=== PATIENT | male | born 1990 | race Caucasian/White ===

== ENCOUNTER 2016-10-21 05:22 | Emergency (ER) | payer SELFPAY ==
[~2016-10-21] VITALS: Ht 167.6 cm; Wt 75.0 kg
[~2016-10-21 05:22] MED LIST: IBUP-232 PO; TRAM50 PO
[2016-10-21 05:24] VITALS: BP 156/97; PULSE 120; RESP 18; TEMP 98; O2SAT 100
[2016-10-21] MEDS ORDERED: DOXYCYCLINE HYCLATE 100 MG TAB PO ONE (06:15)
[2016-10-21] MEDS ORDERED: ACYC400T PO (06:19)
--- NOTE | 2016-10-21 06:24 | PD ---
HPI Chief Complaint: Complaint Time Seen by Provider: 06:13 Travel History International Travel<30 days: No Contact w/Intl Traveler<30days: No Traveled to known affect area: No History of Present Illness HPI 25-year-old male presents to the emergency department for one day of blister- patient is sexually active with and without condom use. Patient does not know if he's had contact with partner that has gentle herpes. Rash is painful on the shaft of the penis. No prior history of genital herpes. No penile discharge. Patient has noted some mild dysuria. No testicular pain. Patient didn't love one episode of vomiting earlier in the evening. No diarrhea. No fever or chills. No abdominal pain. Patient rates penile pain 5/10 in intensity. PFSH Past Medical History Narrative Medical Multiple rib fractures, splenectomy, femur fracture with larisa, appendectomy; tobacco use marijuana use; nursing notes reviewed Hx Anticoagulant Therapy: No Cardiovascular Problems: No Chemotherapy: No Cerebrovascular Accident: No Diabetes: No Diminished Hearing: No Respiratory: No Past Surgical History Appendectomy: Yes Hysterectomy: No Other Surgery: Yes (splenectomy) Social History Alcohol Use: Yes Tobacco Use: Yes (1/2ppd) Substance Use: Yes (marijuana) Allergies-Medications (Allergen,Severity, Reaction): Coded Allergies: Ceclor (Verified Adverse Reaction, Severe, HIVES, 10/21/16) Reported Meds & Prescriptions Reported Meds & Active Scripts Active Acyclovir 400 Mg Tab 400 Mg PO TID 10 Days Review of Systems Except as stated in HPI: all other systems reviewed are Neg General / Constitutional: No: Fever, Chills HENT: No: Congestion Cardiovascular: No: Chest Pain or Discomfort Respiratory: No: Shortness of Breath Gastrointestinal: Positive: Vomiting (x1), No: Diarrhea, Abdominal Pain Genitourinary: Positive: Dysuria, No: Discharge Musculoskeletal: No: Myalgias, Arthralgias Skin: Positive Rash Neurologic: No: Weakness Psychiatric: No: Anxiety Hematologic/Lymphatic: No: Lymph Node Enlargement Physical Exam Narrative GENERAL: Well-developed, nourished male in no acute distress no respiratory distress SKIN: Warm and dry. HEAD: Normocephalic. EYES: No scleral icterus. No injection or drainage. NECK: Supple, trachea midline. No JVD or lymphadenopathy. CARDIOVASCULAR: Regular rate and rhythm without murmurs, gallops, or rubs. RESPIRATORY: Breath sounds equal bilaterally. No accessory muscle use. GASTROINTESTINAL: Abdomen soft, non-tender, nondistended. : Circumcised male bilaterally descended testicles cluster of vesicles with erythematous base tender to palpation on the distal portion of the penile shaft. No ulcerations. MUSCULOSKELETAL: No cyanosis, or edema. BACK: Nontender without obvious deformity. No CVA tenderness. Data Data Last Documented VS Vital Signs Date Time Temp Pulse Resp B/P Pulse Ox O2 Delivery O2 Flow Rate FiO2 10/21/16 05:38 89 15 10/21/16 05:24 98.0 156/97 100 Orders Gc And Chlamydia Pcr (10/21/16 06:07) Ua Includes Microscopic (10/21/16 06:07) Herpes Simplex Virus Culture (10/21/16 06:07) Doxycycline (Vibratab) (10/21/16 06:15) Azithromycin (Zithromax) (10/21/16 09:00) Acyclovir (Zovirax) (10/21/16 06:30) Azithromycin (Zithromax) (10/21/16 06:30) Labs Laboratory Tests Test 10/21/16 06:20 Urine Color YELLOW Urine Turbidity CLEAR Urine pH 6.0 Urine Specific [place] 1.024 Urine Protein NEG mg/dL Urine Glucose (UA) NEG mg/dL Urine Ketones NEG mg/dL Urine Occult Blood NEG Urine Nitrite NEG Urine Bilirubin NEG Urine Urobilinogen 2.0 MG/DL Urine Leukocyte Esterase SMALL Urine RBC 2 /hpf Urine WBC 24 /hpf Urine Bacteria RARE /hpf Urine Mucus FEW /lpf MDM Medical Decision Making Medical Screen Exam Complete: Yes Emergency Medical Condition: Yes Medical Record Reviewed: Yes Interpretation(s) UA: White blood cells bacteria culture indicated Differential Diagnosis Genital herpes, contact dermatitis, STI, UTI Narrative Course 35 year-old male with clustered vesicles on the shaft of the penis that are painful noted times one day who is sexually active without condom use.; Viral swab obtained and presumptive treatment for STI along with genital herpes administered as well as for STI exposure with doxycycline and azithromycin in the emergency department prior to discharge. Patient is otherwise stable for outpatient management. Diagnosis Primary Impression: Vesicular rash Additional Impressions: Genital herpes Qualified Code: A60.01 - Herpes simplex infection of penis Urethritis Referrals: [facility] call for appointment Patient Instructions: General Instructions Additional Instructions: Increase fluid hydration Remain sexually inactive 7 days and only with condoms thereafter Follow-up with primary care provider or [facility] Take medication as prescribed Return to the emergency department for any concerns or change in condition Med/Other Pt SpecificInfo: Prescription(s) given Scripts Ciprofloxacin (Cipro)500 Mg [id number] Mg PO BID 7 Days Ref 0 Prov:Radha Hernandes MD 10/21/16 Acyclovir 400 Mg [id number] Mg PO TID 10 Days Ref 0 Prov:Radha Hernandes MD 10/21/16 Disposition: 01 DISCHARGE HOME Condition: Stable Radha Hernandes MD Oct 21, 2016 06:24
[2016-10-21] MEDS ORDERED: ACYCLOVIR 200 MG CAP PO ONE (06:30)
[2016-10-21] MEDS ORDERED: AZITHROMYCIN 250 MG TAB PO ONE (06:30)
[2016-10-21 06:38] LABS: BACTERIA, URINE RARE /hpf; BLOOD, URINE NEG (NEG); GLUCOSE,URINE NEG (NEG); KETONE, URINE NEG (NEG); MUCUS URINE FEW /lpf (OCC); NITRITE,URINE NEG (NEG); URINE COLOR YELLOW (YELLW/STRAW)
[2016-10-21] MEDS ORDERED: CIPR-9 PO (06:59)
[2016-10-21] MEDS ORDERED: AZITHROMYCIN 250 MG TAB PO SCH (09:00)
[2016-10-21 09:32] LABS: CHLAMYDIA PCR DETECTED (NOT DETECT); NEISSERIA PCR NOT DETECTED (NOT DETECT)
== END 2016-10-21 07:20 | disposition home or self-care (01) ==
LOC: NEPC 05:22
DX: R23.8 Other skin changes (principal); A60.01 Herpesviral infection of penis; A60.00 Herpesviral infection of urogenital system, unspecified; N34.2 Other urethritis
CPT/HCPCS: 81001; 87255; 87491; 87591; 99283

== ENCOUNTER 2016-11-28 22:01 | Emergency (ER) | payer SELFPAY ==
[~2016-11-28 22:01] MED LIST changes: +ACYC400T PO; +CIPR-9 PO; -IBUP-232 PO; -TRAM50 PO
[2016-11-28 22:04] VITALS: BP 164/97; PULSE 108; RESP 16; TEMP 99.3; O2SAT 98
--- NOTE | 2016-11-28 22:27 | PD ---
Physical Exam Time Seen by Provider: 22:25 Narrative 25yo M c/o stepping on metal diallo on Saturday. Noticed redness spreading from the puncture site today. Thinks he had tetanus when splenectomy done in 2011. Denies fever, vomiting. Patient seen in triage. VS reviewed. Awaiting bed placement. Data Data Last Documented VS Vital Signs Date Time Temp Pulse Resp B/P Pulse Ox O2 Delivery O2 Flow Rate FiO2 11/28/16 22:04 99.3 108 16 164/97 98 Room Air [facility] Supervised Visit with ROSALIO: Yumiko Dewitt Nov 28, 2016 22:27
[2016-11-28] MEDS ORDERED: CLIN1CAP5 PO (22:59)
--- NOTE | 2016-11-28 22:59 | PD ---
HPI Chief Complaint: Injury Time Seen by Provider: 22:30 Travel History International Travel<30 days: No Contact w/Intl Traveler<30days: No Traveled to known affect area: No History of Present Illness HPI 25 yo M c/o R foot pain along the sole of the foot. About three days prior he stepped on a piece of metal while he was in socks. He reports splenectomy about 5 years ago, which was also his last tetanus. Over the past two days pain in sole of right foot gradually increased associated redness also noted this afternoon. Erythema gradually worsened over course of day. Minimal tenderness present worse with palpation. No fever. He believe Neosporin may have been helpful. PFSH Past Medical History Hx Anticoagulant Therapy: No Cardiovascular Problems: No Chemotherapy: No Cerebrovascular Accident: No Diabetes: No Diminished Hearing: No Respiratory: No Past Surgical History Appendectomy: Yes Hysterectomy: No Other Surgery: Yes (splenectomy) Social History Alcohol Use: Yes Tobacco Use: Yes (1/2ppd) Substance Use: Yes (marijuana) Allergies-Medications (Allergen,Severity, Reaction): Coded Allergies: Ceclor (Verified Adverse Reaction, Severe, HIVES, 11/28/16) Reported Meds & Prescriptions Reported Meds & Active Scripts Active Clindamycin (Clindamycin HCl) 150 Mg Cap 450 Mg PO Q8HR 10 Days Review of Systems General / Constitutional: No: Fever Skin: Positive Lesions Physical Exam Narrative GENERAL: 25 yo M, WNWD, NAD SKIN: Warm and dry. Erythema in a linear pattern along sole of R foot with approximately 1cm area dry skin with central opening. HEAD: Normocephalic. EYES: No scleral icterus. No injection or drainage. NECK: Supple, trachea midline. No JVD or lymphadenopathy. GASTROINTESTINAL: Abdomen soft, non-tender, nondistended. MUSCULOSKELETAL: No cyanosis, or edema. BACK: Nontender without obvious deformity. No CVA tenderness. Data Data Last Documented VS Vital Signs Date Time Temp Pulse Resp B/P Pulse Ox O2 Delivery O2 Flow Rate FiO2 11/28/16 22:04 99.3 108 16 164/97 98 Room Air VS reviewed Orders Clindamycin Inj (Cleocin Inj) (11/28/16 23:00) Tetanus/Diphtheria Tox Adult (Tetanus/Di (11/28/16 23:00) MDM Medical Decision Making Medical Screen Exam Complete: Yes Emergency Medical Condition: Yes Medical Record Reviewed: Yes Differential Diagnosis sepsis, cellulitis, lymphangitis Narrative Course Pt has cellulitis with minute element lymphangitis. Clindamycin prescribed with first dose given here. Strict return precautions discussed and patient verbalized understanding. At home management discussed. Pt verbalized understanding. Diagnosis Primary Impression: Cellulitis Qualified Code: L03.115 - Cellulitis of right lower extremity Referrals: Primary Care Physician 2 days Additional Instructions: You have a choice when it comes to health care, and we are glad that you chose [facility]. Hopefully, we have met your expectations on today's visit. You are welcome to return to [facility] at any time, as we are committed to meeting the health care needs of our community. Med/Other Pt SpecificInfo: Prescription(s) given Scripts Clindamycin 150 Mg [id number] Mg PO Q8HR 10 Days Ref 0 Prov:Charli Cool MD 11/28/16 Disposition: 01 DISCHARGE HOME Condition: Stable Charli Cool MD Nov 28, 2016 22:59
[2016-11-28] MEDS ORDERED: CLINDAMYCIN PHOS 900 MG/6 ML VIAL IM ONE (23:00)
[2016-11-28] MEDS ORDERED: TETANUS/DIPHTHERIA TOXOID ADULT 0.5 ML VIAL IM ONE (23:00)
== END 2016-11-29 00:56 | disposition home or self-care (01) ==
LOC: NEPD 22:01
DX: L03.115 Cellulitis of right lower limb (principal); Z23 Encounter for immunization; F17.210 Nicotine dependence, cigarettes, uncomplicated
CPT/HCPCS: 90471; 90714; 96372

== ENCOUNTER 2017-09-19 01:58 | Emergency (ER) | payer SELFPAY ==
[~2017-09-19] VITALS: Ht 170.2 cm; Wt 80.0 kg
[~2017-09-19 01:58] MED LIST changes: -ACYC400T PO; -CIPR-9 PO; +CLIN150C14 PO
[2017-09-19 02:01] VITALS: BP 141/85; PULSE 112; RESP 18; TEMP 99.1; O2SAT 99
== END 2017-09-19 03:12 | disposition left against medical advice (07) ==
LOC: NED 01:58
DX: N20.0 Calculus of kidney (principal); Z53.21 Procedure and treatment not carried out due to patient leaving prior to being seen by health care provider
CPT/HCPCS: 99281